=== PATIENT | female | born 1975 | race Asian ===

== ENCOUNTER → 2025-04-12 | Emergency (ER) | payer OTHER ==
[~2025-04-12] VITALS: Ht 165.1 cm; Wt 61.2 kg
[2025-04-12 16:14] VITALS: BP 113/70; O2SAT 99
== END | disposition left against medical advice (07) ==
LOC: ER 16:10
DX: Z53.21 Procedure and treatment not carried out due to patient leaving prior to being seen by health care provider (principal)